=== PATIENT | female | born 1945 | race Caucasian/White ===

== ENCOUNTER → 2024-02-11 14:51 | Outpatient (REF) | payer OTHER, SELFPAY | LOC: HWRAD 14:51 | PROVIDERS: ATTENDING PHYSICIAN Family Medicine | DX: M81.0 Age-related osteoporosis without current pathological fracture (principal); Z78.0 Asymptomatic menopausal state; Z12.31 Encounter for screening mammogram for malignant neoplasm of breast | CPT/HCPCS: 77063; 77067; 77080 ==

== ENCOUNTER 2024-11-29 20:04 | Emergency (ER) | payer OTHER, SELFPAY ==
[2024-11-29 20:09] VITALS: BP 172/101
[2024-11-29 20:36] LABS: Hematocrit 35.2 % (37.0-47.0); Hemoglobin 11.6 g/dL (12.0-16.0); Mean Corp Hgb Conc. 33.0 g/dL (33.0-37.0); Mean Corpuscular Volume 91.0 fL (81.0-99.0); Nucleated Red Blood Cells % 0 %; Platelet Count 298 10^3/uL (130-400); Red Cell Dist. Width 13.9 % (11.5-14.5)
[2024-11-29 20:59] LABS: ALT (SGPT) 18 U/L (0-35); AST (SGOT) 21 U/L (14-36); Albumin 3.8 g/dl (3.5-5.0); Alkaline Phosphatase 81 U/L (38-126); Blood Urea Nitrogen 30 mg/dl (7-17); Calcium 8.3 mg/dl (8.4-10.2); Carbon Dioxide 31 mmol/L (22-30); Chloride 98 mmol/L (98-107); Glucose 115 mg/dl (70-99); Total Protein 6.8 g/dl (6.3-8.2); eGFR > 60.00
[2024-11-29 21:07] LABS: Potassium 3.5 mmol/L (3.5-5.1); Sodium 129 mmol/L (135-145)
[2024-11-29 23:42] VITALS: BP 154/102; BMI 19.6
[2024-11-30] VITALS (23 sets, daily range): BP systolic 54–175; BP diastolic 38–105; PULSE 67–70
--- NOTE | 2024-11-30 00:21 | ED.GENMED ---
History of Present Illness
General
Chief Complaint: Fainting Sensation
Source: patient
Exam Limitations: none
Time Seen by Provider: 11/29/24 23:42
History of Present Illness
History of Present Illness:
Patient with Mohs surgery either earlier today. Bleeding from site. Syncopal episode at home. No other complaints. No significant thinners except for aspirin.
Past History
Past History
ED Past Medical History: GERD (Hiatal hernia, esophageal stricture with esophageal food impaction), HTN, Hypothyroidism and Other (Hypertension, previous vertigo, thyroid surgery, hiatal hernia)
ED Past Surgical History: Other (Thyroidectomy, cataract; colonoscopy and endoscopy with esophageal stricture dilation)
Social History
Tobacco: Non-smoker
Alcohol: Occasional
Drug: None
Personal:
Living: alone
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
Family History
Family History: Hypertension
Review of Systems
Review of Systems
All Other Systems: Not applicable
Phy Exam
Physical Exam
Physical Exam:
GENERAL: Alert and oriented in no apparent distress
CARDIAC: Regular rate and rhythm without any obvious murmurs.
LUNGS: Clear breath sounds,normal
NEUROLOGICAL: Alert and oriented , grossly non-focal
SKIN: Warm and dry. Large open wound to the left thigh. Bleeding from localized vessel.
MUSCULOSKELETAL: No edema,no deformity.Good color
PSYCH: Normal and appropriate interaction.
Course
Orders/Labs/Results
Orders:
Orders
11/29/24 20:12
EKG [Electrocardiogram (*1)] Urgent
Reason for Study: Fatigue / Weakness
11/29/24 20:13
EKG- Treatment ONCE
11/29/24 20:23
Complete Blood Count/With Diff Urgent
Comprehensive Metabolic Panel Urgent
11/30/24 00:23
0.9% Sodium Chloride 500 ml [Nss] 500 ml IV BOLUS
11/30/24 00:24
Case Management Consult ONCE
Case Management Consult: Discharge Planning
11/30/24 02:25
0.9% Sodium Chloride 1000 ml [Nss] 1,000 ml IV BOLUS
11/30/24 02:27
Electrocardiogram (*1) Urgent
Reason for Study: Bradycardia / Tachycardia
EKG- Treatment ONCE
Atropine Sulfate [Atropine 0.1 mg/ml Syringe] 1 mg .ROUTE .STK-MED ONE
11/30/24 02:28
Atropine Sulfate [Atropine 0.1 mg/ml Syringe] 0.5 mg IV NOW STA
11/30/24 02:30
Troponin I Urgent
Abnormal Lab Results
11/29/24
20:23
RBC 3.87 L 10^6/uL
(4.20-5.40)
Hgb 11.6 L g/dL
(12.0-16.0)
Hct 35.2 L %
(37.0-47.0)
Absolute Neuts (auto) 7.4 H 10^3/uL
(1.4-6.5)
Neutrophils % 78.0 H %
(42.2-75.2)
Lymphocytes % 13.8 L %
(20.5-51.1)
Sodium 129 L mmol/L
(135-145)
Carbon Dioxide 31 H mmol/L
(22-30)
BUN 30 H mg/dl
(7-17)
Glucose 115 H mg/dl
(70-99)
Calcium 8.3 L mg/dl
(8.4-10.2)
11/29/24 20:23
11/29/24 20:23
Vital Signs
Initial and Last Documented VS:
Initial Vital Signs
Temp Pulse Resp BP Pulse Ox
98.5 F 65 18 172/101 98
11/29/24 20:09 11/29/24 20:09 11/29/24 20:09 11/29/24 20:09 11/29/24 20:09
Last Documented Vital Signs
Temp Pulse Resp BP Pulse Ox
98.5 F 68 16 110/68 97
11/29/24 20:09 11/30/24 11:15 11/30/24 11:15 11/30/24 10:22 11/30/24 04:45
MDM/Problems Addressed
Differential Diagnosis Includes:
Patient syncope was likely vasovagal. He did not feel she lost enough blood that this was a bleeding issue causing the syncope. Clinically stable now. Stable vital signs. Wound with a pressure dressing after Adaptic dressing. 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 They are in the [place] office in the morning and can be seen and
*Pulse Oximetry
SaO2: 98
Oxygen Mode of Delivery: Room air
Patient hypoxic: no (98)
*Critical Care Note
Total Time (30-74mins, 75-104mins- exclusive of procedures): 40
Update Note
Update Note:
Rechecked multiple times and has remained stable. Talk to dermatology. They will see in the morning in the [place] office. Will ask case management to help with transport patient cannot arrange on her own
Approximately 0230... Patient became bradycardic and hypotensive. Placed flat. IV fluids. 0.5 given. EKG shows a normal sinus rhythm with prolonged QT. This was after atropine. Responded to fluids and atropine. Continuous monitoring for about
30 minutes. Currently stable blood pressure. This was still all consistent with vasovagal. Thigh bleeding site with a small amount of blood but no significant blood externally
ED Attending Note
-
Portions of this chart may have been created with voice recognition software.� Occasional wrong word or��sound alike� substitutions may have occurred due to the inherent limitations of voice recognition software.
Discharge Plan
Departure
Patient Disposition: Home (Routine Discharge)
Date of Disposition: 11/30/24
Time of Disposition: 08:20
Patient with high blood pressure during this ER visit?: No
Condition: Good
Discharge Problem:
Bleeding from Mohs surgery site, Syncope
Instructions: Syncope (Fainting) (DC), Bleeding After Surgery
Prescriptions:
No Action
levothyroxine [Synthroid] 50 MCG tablet
50 mcg PO DAILY
Inderal XL 80 mg Capsule,Extended Release 24hr
80 mg PO DAILY
sertraline 25 mg Tablet
25 mg PO DAILY
aspirin 81 mg Capsule
81 mg PO DAILY
Referrals:
UNKNOWN - PT DOES,NOT KNOW [Family Provider]
Activity Restrictions/Additional Instructions:
Go directly to the dermatology office of Dr. Gerard in [place]
Interventions
Interventions:
*Risk Screen - Suicide Last Done: 11/29/24 20:09
*General Assessment Last Done: 11/29/24 20:09
*Neglect/Abuse Screening Last Done: 11/29/24 20:09
*ED- Fall Risk Assessment Last Done: 11/29/24 20:09
*ED COVID-19 Vaccine History Last Done: 11/29/24 20:09
*ED Influenza Vaccine History Last Done: 11/29/24 20:09
*Nursing Disposition Last Done: 11/30/24 10:49
ED- Cardiac Assessment Last Done: 11/30/24 07:39
ED- Neurological Assessment Last Done: 11/30/24 07:39
Discharge Date and Time
Discharge Date/Time: 11/30/24 12:09
Print Language: TELUGU
[2024-11-30] MEDS: NSS 500 IV (00:24)
[2024-11-30] MEDS: NSS 1000 IV (02:25)
--- NOTE | 2024-11-30 02:26 | DOWNTIME ---
There was a [employer] Client Filling Machine Set Up Mechanic Downtime on 11/30/2024 from 0100 to 11/30/2024 at 0215. Downtime documentation of patient's care, including medication administrations, has been reconciled in the electronic record per guidelines. Refer to the
patient's paper chart under the miscellaneous tab to see printed paper medication records and downtime forms.
[2024-11-30] MEDS: ATROPINE 0.1 MG/ML SYRINGE 0.5 MG IV (02:28)
[2024-11-30 03:09] LABS: Troponin I < 0.012 ng/ml
--- NOTE | 2024-11-30 09:10 | EDCM ---
CM received consult and reviewed chart. Met with pt bedside in ED. Pt said her daughter lives in [facility] and will pick her up and take her to the dermatology office in [place]. She told us the doctor was concerned about her being able to keep
her leg elevated in a car, she said she will lay across the back seat.
Pt is waiting for a call from Dermatology office about the pathology results.
FRANK Ramírez updated. No further CM needs at this time.
== END 2024-11-30 12:09 | disposition home or self-care (01) ==
LOC: EMR 20:04
PROVIDERS: Emergency Medicine; EMERGENCY PHYSICIAN Emergency Medicine
DX: L76.21 Postprocedural hemorrhage of skin and subcutaneous tissue following a dermatologic procedure (principal); R55 Syncope and collapse; R00.1 Bradycardia, unspecified; I95.9 Hypotension, unspecified; R94.31 Abnormal electrocardiogram [ECG] [EKG]; I10 Essential (primary) hypertension; E89.0 Postprocedural hypothyroidism; K21.9 Gastro-esophageal reflux disease without esophagitis; K44.9 Diaphragmatic hernia without obstruction or gangrene; Z79.82 Long term (current) use of aspirin; Z82.49 Family history of ischemic heart disease and other diseases of the circulatory system
CPT/HCPCS: 99284; 96374; 96361 ×2; 80053; 84484; 85025; 93005